=== PATIENT | female | born 1970 | race Caucasian/White ===

== ENCOUNTER 2025-02-26 12:06 | Emergency (ER) | payer OTHER ==
[~2025-02-26] VITALS: Ht 165.1 cm; Wt 65.8 kg
[2025-02-26 13:15] LABS: Source, Urine Clean Catch
[2025-02-26 13:37] LABS: Appearance, Urine Clear (Clear); Bilirubin, Urine Neg (Neg); Blood, Urine 3+ (Neg); Color, Urine Yellow (P-Yellow); Glucose Qualitative, Urine Neg (Neg); Ketones, Urine Neg (Neg); Leukocyte Esterase, Urine 1+ (Neg); Nitrite, Urine Neg (Neg); Protein, Urine 1+ (Neg); Specific Gravity, Urine 1.015 (1.003-1.022); Urobilinogen, Urine NORM (Normal)
[2025-02-26 13:49] LABS: Bacteria Few /hpf; Squamous Epithelial Cells Few /hpf (Few)
[2025-02-26] MEDS ORDERED: NS 1,000 ML IV SCH (14:25)
[2025-02-26] MEDS ORDERED: Acetaminophen 500 MG Tab PO ONE (14:25)
[2025-02-26] MEDS ORDERED: Ondansetron HCl 2 MG / ML 2ML Vial IV ONE (14:25)
[2025-02-26 14:56] LABS: BASOPHILS ABSOLUTE AUTO 0.02 K/mm3 (0.00-0.23); BASOPHILS PERCENT AUTO 0 % (0-2); EOSINOPHILS ABSOLUTE AUTO 0.05 K/mm3 (0.00-0.68); EOSINOPHILS PERCENT AUTO 1 % (0-6); Hematocrit 41.2 % (33.0-51.0); IMMATURE GRAN ABSOLUTE AUTO 0.02 K/mm3 (0.00-0.10); IMMATURE GRAN PERCENT AUTO 0 % (0-1); LYMPHOCYTES ABSOLUTE AUTO 0.74 K/mm3 (0.84-5.20); LYMPHOCYTES PERCENT AUTO 10 % (21-46); MONOCYTES PERCENT AUTO 12 % (4-13); Mean Corpuscular HGB 30.4 pg (26.0-34.0); Mean Corpuscular Volume 90 fL (80-100); Mean Platelet Volume 9.6 fL (9.1-12.4); NEUTROPHILS ABSOLUTE AUTO 5.99 K/mm3 (1.96-9.15); NEUTROPHILS PERCENT AUTO 78 % (41-73); Platelet Count 244 K/mm3 (150-400); RDW Coefficient Variation 12.7 % (11.7-14.2); RDW Standard Deviation 41.7 fL (35.1-46.3); White Blood Cell Count 7.72 K/mm3 (4.00-11.30)
[2025-02-26 15:28] LABS: Albumin, Blood 3.7 g/dL (3.4-5.0); Albumin/Globulin Ratio 0.9 (0.8-1.8); Bilirubin, Total 0.2 mg/dL (0.1-1.0); Bun/Creatinine Ratio 16.2 (12.0-20.0); Calcium, Blood 9.5 mg/dL (8.5-10.1); Creatinine, Blood 0.74 mg/dL (0.40-1.00); Globulin, Blood 3.9 g/dL (2.2-4.0); Total Protein, Blood 7.6 g/dL (6.4-8.2)
[2025-02-26] MEDS ORDERED: CEFP200 PO (15:54)
[2025-02-26] MEDS ORDERED: Cefpodoxime Proxetil 200 MG Tab PO ONE (15:55)
== END 2025-02-26 16:28 | disposition home or self-care (01) ==
LOC: ER 12:06
PROVIDERS: Student in an Organized Health Care Education/Training Program
DX: N39.0 Urinary tract infection, site not specified (principal)
CPT/HCPCS: 74177; 80053; 81001; 83690; 85025; 87077; 87086; 87186; 93005; 93010; 96361; 96374-59; 99284-25; A9270; J2405; J7030; Q9967

== ENCOUNTER → 2025-08-01 | Outpatient (CLI) | payer OTHER ==
[~2025-08-01] MED LIST: CEFP200 PO
== END ==
LOC: LAB SHORT 16:10 → LAB 16:10
PROVIDERS: General Practice
DX: Z12.4 Encounter for screening for malignant neoplasm of cervix (principal)
CPT/HCPCS: 87624; G0145